=== PATIENT | male | born 1995 | race Caucasian/White ===

== ENCOUNTER 2016-08-04 02:01 | Emergency (ER) | payer OTHER ==
[~2016-08-04] VITALS: Ht 177.8 cm; Wt 80.7 kg
[2016-08-04 02:03] VITALS: Ht 177.8 cm; Wt 80.7 kg
[2016-08-04] MEDS ORDERED: ALBUT/IPRATROP 3MG/0.5MG NEB 3 ML VIAL INH STA (02:17)
[2016-08-04] MEDS ORDERED: CLOTRIMAZOLE 1% CR 15 GM TUBE EXT ONE (02:30)
[2016-08-04] MEDS ORDERED: ALBUTEROL HFA 8 GM INHALER INH STA (03:11)
--- NOTE | 2016-08-04 03:21 | EMERGENCY ROOM VISIT NOTE ---
History First contact with patient: 02:10 Chief Complaint: SKIN PROBLEM Stated Complaint: SKIN INFECTION History of Present Illness The patient is a 20 year old male who presents to the Emergency Room with complaints of problems with his penis was uncircumcised and also complains of cough and congestion for the past 2 months. Patient states he was unable to clean his glans over the weekend as he was at. Patient states there is white drainage that is itchy and scaly area that is also red. He is concerned there is a problem. Patient denies risk for STI's, penile discharge, testicular pain , fever, chills, urinary symptoms. #2. Patient also complains of cough and congestion for the past 2 months. Patient denies chest pain, dyspnea, fever, chills, sore throat, earache, sinus pain or congestion. Review of Systems See HPI for pertinent positives & negatives. A total of 10 systems reviewed and were otherwise negative. Past Medical/Surgical History None Social History Smoking Status: Never Smoker Smokeless Tobacco Use: No Alcohol Use: none Drug Use: none Occupation Status: [employer] student Current/Historical Medications No Active Prescriptions or Reported Meds Allergies Coded Allergies: No Known Allergies (Unverified , 08/04/16) Physical Exam Vital Signs Date Time Temp Pulse Resp B/P Pulse Ox O2 Delivery O2 Flow Rate FiO2 08/04/16 02:03 36.8 78 16 114/80 97 Room Air Physical Exam VITALS: Vitals are noted on the nurse's note and reviewed by myself. Vital signs stable. GENERAL: Pleasant male, in no acute distress, nondiaphoretic, well-developed well-nourished. SKIN: The skin was without rashes, erythema, edema, or bruising. There is no tenting of the skin. Capillary reflex less than 2 seconds. HEAD: Normocephalic atraumatic. EARS: External auditory canals clear, tympanic membranes pearly ervin without erythema or effusion bilaterally. EYES: Pupils equal round and reactive to light and accommodation. Conjunctivae without injection, sclerae without icterus. Extraocular movements intact. NOSE: Patent, turbinates without inflammation or discharge. No sinus tenderness. MOUTH: Mucous membranes moist. Pharynx without erythema or exudate. Uvula midline. Airway patent. Tongue does not deviate. NECK: Supple without nuchal rigidity. No lymphadenopathy. No thyromegaly. Cervical spine is nontender. No JVD. HEART: Regular rate and rhythm without murmurs gallops or rubs. LUNGS: Clear to auscultation bilaterally without wheezes, rales or rhonchi. No dullness to percussion. No retractions or accessory muscle use. ABDOMEN: Positive bowel sounds x 4. Normal tympanic percussion. Soft, nontender, without masses or organomegaly. Vyas sign negative. No guarding or rebound tenderness. exam: Normal external male genitalia, uncircumcised, ulcerative and scaly lesions to the glans concerning for candidiasis. Freight Loader present MUSCULOSKELETAL: No muscle atrophy, erythema, or edema noted. NEURO: Patient was alert and oriented to person place and time. Normal sensation to light and sharp touch. No focal neurological deficits. Medical Decision & Procedures Medications Administered Medications (Trade) Dose Ordered Sig/Vladimir Route Start Time Stop Time Status Last Admin Dose Admin Albuterol/ Ipratropium (Duoneb) 3 ml NOW STAT INH 08/04/16 02:17 08/04/16 02:18 DC 08/04/16 02:17 3 ML Clotrimazole (Lotrimin 1% Crm) 1 appln NOW ONCE EXT 08/04/16 02:30 08/04/16 02:31 DC 08/04/16 02:30 1 APPLN ED Course Prior records reviewed and summarized as above. Triage Nursing notes reviewed. The patient's history was concerning for swelling and redness that is itchy with white drainage to the penis and allergy symptoms Differential diagnosis: Etiologies such as tonsillitis, STI, cellulitis, necrotizing fasciitis, dermatitis, as well as others were entertained.. Etiologies such as seasonal allergies, pneumonia, bronchitis, reactive airway and other etiologies were considered. Physical examination: The physical examination was consistent with bronchitis and seasonal allergies ER treatment provided: Clotrimazole, albuterol On reassessment the patient felt better. Diagnostics interpreted by me: Imaging studies: Chest x-ray with no acute consolidation, pneumothorax or free air per interpretation This appears to be balanitis with seasonal allergies.. Patient is well- appearing. He was not hypoxic. No signs of phimosis or paraphimosis. He was able to easily retract the foreskin. Patient was strongly encouraged to clean his foreskin area frequently. He is advised to try Zyrtec for his allergies. He was advised follow-up with health services in a few days or here in the ER sooner for penile pain, difficulty his foreskin, fevers, worsening signs or symptoms or as needed. By the evaluation outlined above emergent etiologies such as abscess, pneumonia , as well as others were deemed relatively unlikely. The pt informed about the findings as listed above. All questions were answered and pleased with the treatment. Return instructions were outlined and the patient was discharged in stable condition. Referral: The patient was referred back to primary care physician for follow-up in 2 to 3 days for a recheck of the current condition. Medical Decision As above Impression Primary Impression: Candidal balanitis Additional Impression: Cough Departure Information Dispostion Home / Self-Care Condition GOOD Prescriptions No Active Prescriptions or Reported Meds Referrals No Doctor, Assigned (PCP) Patient Instructions [facility] [employer] Additional Instructions Frequently clearing your foreskin area. Clotrimazole cream: Apply twice a day for 2 weeks. Try Zyrtec [id number] for your cough. your symptoms are most likely related to allergies. Rest. Stay well-hydrated. Follow-up with health services in 3-5 days. Return to ER sooner for fevers, difficulty with foreskin, chest pain, breathing concerns, worsening signs or symptoms or as needed. Problem Qualifiers
[2016-08-04 03:37] VITALS: BP 154/75; PULSE 74; TEMP 36.8; O2SAT 99
--- NOTE | 2016-08-04 07:27 | DIAGNOSTIC IMAGING REPORT ---
CHEST 2 VIEWS ROUTINE CLINICAL HISTORY: cough COMPARISON STUDY: No previous studies for comparison. FINDINGS: The cardiac and mediastinal contours are normal. There is no evidence of focal pulmonary consolidation. There is no evidence of failure. No pleural effusions are visualized.[ IMPRESSION: No active disease in the chest. Electronically signed by: Casey Hicks M.D. 08/04/2016 7:25 AM Dictated Date/Time: 08/04/2016 7:25 AM
== END 2016-08-04 03:37 | disposition home or self-care (01) ==
LOC: C.EDB 02:02
DX: B37.42 Candidal balanitis (principal); R05 Cough